=== PATIENT | male | born 1940 | race Caucasian/White ===

== ENCOUNTER 2016-08-07 01:17 | Emergency (ER) | payer MEDICARE, OTHER ==
[2016-08-07] MEDS ORDERED: oxyCODONE/APAP 5/325 MG PREPAC 1 TAB TABLET PO ONE (01:55)
[2016-08-07] MEDS ORDERED: predniSONE 10 MG TABLET PO ONE (01:56)
--- NOTE | 2016-08-07 01:58 | ER NURSING DOCUMENTATION ---
Nurse's Notes [facility] Name:Raza Manning Age:75 yrs Sex:Male :1940 Arrival Date:08/07/2016 Time:01:17 Bed4 Private MD: Diagnosis:Sciatica Presentation: 08/07 01:24 Presenting complaint: Patient states: low back pain more to right side for past 24 hrs. lb no known injury. denies urinary sx. has not taken any meds for pain relief. Transition of care: Home. Notified ED Physician of Natanael Cannon notified. 01:24 Acuity: TAWNY 3 lb 01:24 Method Of Arrival: Walk In lb Triage Assessment: 01:29 General: Appears uncomfortable, Behavior is appropriate for age, pleasant. Pain: lb Complains of pain in right low back Pain does not radiate. Pain currently is 10 out of 10 on a pain scale. Pain began 1 day ago. Musculoskeletal: No deficits noted. Circulation, motion, and sensation intact Capillary refill < 3 seconds. Historical: - Allergies: No known drug Allergies; - Home Meds: 1. Synthroid Oral 2. Hydrochlorothiazide Oral 3. Cholesterol Relief oral - PMHx: Hypertension; HYPOTHYROIDISM; hyperlipidemia; - PSHx: Tonsillectomy; back; - Tetanus: < 10 years. - Ebola Screening: : Patient denies exposure to infectious person. Patient denies travel to an Ebola-affected area in the 21 days before illness onset. . - Immunization history: Pneumococcal vaccine is up to date, Flu Vaccine < 1 year. - Social history: Smoking status: Patient states was never smoker of tobacco. Patient/guardian denies using alcohol. Screenin:30 Infectious Disease Risk None. Abuse screen: Denies threats or abuse. Denies injuries lb from another. Nutritional screening: No deficits noted. Assessment: 01:30 See Triage Assessment done by same RN. Neuro: No deficits noted. lb Vital Signs: 01:24 BP 186 / 85 RA Sitting (auto/reg); Pulse 54 RA; Resp 14 S; Temp 97.9(O); Pulse Ox 94% em3 on R/A; Weight 99.79 kg (R); Height 6 ft. 0 in. (182.88 cm) (R); Pain 10/10; 01:56 BP 170 / 80; Pulse 68; Resp 17; lb 01:24 Body Mass Index 29.84 (99.79 kg, 182.88 cm) em3 ED Course: 01:18 Patient arrived in ED. em3 01:24 Lizette Mo is Primary Nurse. lb 01:25 Valuables Remains with patient Patient has correct armband on for positive em3 identification. Placed in gown. Bed in low position. Call light in reach. Side rails up X2. 01:27 Triage completed. lb 01:34 Leo Santoyo MD is Attending Physician. jm 01:50 Sayra Marley MD is Referral Physician. pedro pablo Administered Medications: 01:54 Drug: Percocet Tablet (5 mg-325 mg) 6 tabs; Route: PO; lb 01:55 Follow up: Response: Pharmacy closed - take home med pack lb :54 Drug: predniSONE 40 mg; Route: PO; lb 01:55 Follow up: Response: No change in condition lb Point of Care Testing: Urine Dip: :55 pH: 5.5; ; Specific [place]: 1.025; Ketones: Negative; Glucose: Negative; Protein: lb Negative; Leukocytes: Negative; Nitrite: Negative ; Blood: Non Hemolyzed Trace; Bilirubin: Negative ; Urobilinogen: Normal Outcome: 01:50 Discharge ordered by . jm 01:56 Discharged to home ambulatory. lb 01:56 Condition: stable 01:56 Discharge Assessment: Patient awake, alert and oriented x 3. No cognitive and/or functional deficits noted. Patient verbalized understanding of disposition instructions. 01:56 Instructed on discharge instructions, follow up and referral plans. no drinking with medication, no driving heavy equipment. 01:57 Patient left the ED. lb 08/08 15:24 Discharge F/U Call: Spoke with: patient. Are you having any pain? no. How are you lc managing your pain? Have you filled your prescriptions? yes. Did your discharge instructions answer all of your questions? yes Overall Care on a scale of 1-10 with 10 being the best care, you rate our care as: Other comments: FEELING MUCH BETTER Signatures: Brenda Wetzel, RN RN Leo Betancourt MD MD jm Meiklejohn, Eric em3 Lizette Mo
--- NOTE | 2016-08-07 01:58 | ER PHYSICIAN DOCUMENTATION ---
Physician Documentation [facility] Name:Raza Manning Age:75 yrs Sex:Male :1940 Arrival Date:08/07/2016 Time::17 Bed4 Private MD: Leo Acuña Disposition: 08/07/16 01:50 Discharged to Home/Self Care. Impression: Sciatica. - Condition is Good. - Discharge Instructions: BACK PAIN w/ SCIATICA. - Prescriptions for Percocet 5- 325 mg Oral - take 1 tablet by ORAL route every 6 hours As needed; 15 tablet. Prednisone 20 mg Oral Tablet - take 2 tablet by ORAL route once daily for 5 days; 10 tablet. - Medical Reconciliation form form. - Follow up: Sayra Marley MD; When: 2 - 3 days; Reason: Continuance of care. - Problem is new. - Symptoms have improved. HPI: 08/07 02:00 This 75 yrs old Male presents to ER via Walk In with complaints of Back Pain. jm 02:00 The patient presents with pain that is acute. The symptoms are located in the low back, jm right low back. Onset: The symptoms/episode began/occurred yesterday, and became worse just prior to arrival. The pain radiates down the patient's right lower extremity. Associated signs and symptoms: Pertinent negatives: dysuria, incontinence, numbness, tingling, urinary retention, weakness. The problem was sustained shoveling snow. . Pt w R lower back pain w some radiation to his R hip and back of R thigh. Pt thinks its from shoveling snow, but he;s never had this type of pain. He could not get comfortable, so he came to the ER. . Historical: - Allergies: No known drug Allergies; - Home Meds: 1. Synthroid Oral 2. Hydrochlorothiazide Oral 3. Cholesterol Relief oral - PMHx: Hypertension; HYPOTHYROIDISM; hyperlipidemia; - PSHx: Tonsillectomy; back; - Tetanus: < 10 years. - Ebola Screening: : Patient denies exposure to infectious person. Patient denies travel to an Ebola-affected area in the 21 days before illness onset. . - Immunization history: Pneumococcal vaccine is up to date, Flu Vaccine < 1 year. - Social history: Smoking status: Patient states was never smoker of tobacco. Patient/guardian denies using alcohol. ROS: 02:00 Constitutional: Negative for fatigue, fever. 02:00 Back: Positive for injury or acute deformity, pain at rest, pain with movement, radiated pain. 02:00 : Negative for difficulty urinating, bladder incontinence. 02:00 MS/extremity: Negative for tingling. 02:00 Neuro: Negative for loss of consciousness, tingling, weakness. Exam: 02:00 Constitutional: The patient appears alert, awake. 02:00 Respiratory: the patient does not display signs of respiratory distress, Respirations: normal. 02:00 Back: pain, that is mild, of the right low back, vertebral tenderness, is not appreciated. 02:00 : Male external genitalia: normal, Bladder: is normal. 02:00 Neuro: Motor: is normal, strength is normal, Sensation: numbness, is not appreciated, tingling, is not appreciated, Gait: Deep tendon reflexes are 2+ (normal) in the right patellar and left patellar. 02:00 Psych: Behavior/mood is pleasant, cooperative, Affect is calm. Vital Signs: 01:24 BP 186 / 85 RA Sitting (auto/reg); Pulse 54 RA; Resp 14 S; Temp 97.9(O); Pulse Ox 94% em3 on R/A; Weight 99.79 kg (R); Height 6 ft. 0 in. (182.88 cm) (R); Pain 10/10; 01:56 BP 170 / 80; Pulse 68; Resp 17; lb 01:24 Body Mass Index 29.84 (99.79 kg, 182.88 cm) em3 MDM: 01:34 Patient medically screened. 02:00 Differential diagnosis: Pyelonephritis sprain, sciatica. Data reviewed: vital signs, nurses notes, lab test result(s), urinalysis, and as a result, I will discharge patient. Counseling: I had a detailed discussion with the patient and/or guardian regarding: the historical points, exam findings, and any diagnostic results supporting the discharge/admit diagnosis, lab results, the need for outpatient follow up, with the patient's primary care provider. ED course: Will do trial of percocet and prednisone. Pt can f/u w PCP. . 08/07 01:30 Order name: Urine Dip; Complete Time: 01:55 lb Dispensed Medications: 01:54 Drug: Percocet Tablet (5 mg-325 mg) 6 tabs; Route: PO; lb :55 Follow up: Response: Pharmacy closed - take home med pack lb :54 Drug: predniSONE 40 mg; Route: PO; lb :55 Follow up: Response: No change in condition lb Point of Care Testing: Urine Dip: :55 pH: 5.5; ; Specific [place]: 1.025; Ketones: Negative; Glucose: Negative; Protein: lb Negative; Leukocytes: Negative; Nitrite: Negative ; Blood: Non Hemolyzed Trace; Bilirubin: Negative ; Urobilinogen: Normal Signatures: Leo Santoyo MD MD jm Bollock, Lynda lb
== END 2016-08-07 01:58 | disposition home or self-care (01) ==
LOC: ER 01:17
DX: M54.31 Sciatica, right side (principal); I10 Essential (primary) hypertension; Z79.899 Other long term (current) drug therapy
CPT/HCPCS: 99283; J7512